=== PATIENT | male | born 1960 | race Caucasian/White ===

== ENCOUNTER 2016-10-02 14:09 | Emergency (ER) | payer SELFPAY ==
--- NOTE | 2016-10-02 14:30 | ED NURSING NOTES ---
Clinical Report - Nurses [facility] [address] [place] [address] 10/02/2016 14:10 Patient: JASVIR WOLFE TRIAGE Triage time 14:20. Acuity: LEVEL 4. Chief Complaint: RIGHT UPPER and LOWER TOOTHACHE. Alert. --14:29 Darcy Crisostomo R.N. 14:21 10/02/16. BP: 157/101. HR: 86. RR: 20. O2 saturation: 99% on room air. Temp: 98.5 F. Pain level now: 01/07. --14:29 Darcy Crisostomo R.N. 14:21 10/02/16. BP: 157/101. HR: 86. RR: 20. O2 saturation: 99% on room air. Temp: 98.5 F. Pain level now: 01/07. --14:29 Darcy Crisostomo R.N. Weight: 74.8 kg stated. Height/Length: 67 inches Per Patient. BMI: 25.9. --14:28 Darcy Crisostomo R.N. Medications None. --14:24 Darcy Crisostomo R.N. Medication/allergy information source: the patient. --14:29 Darcy Crisostomo R.N. Allergies No Known Drug Allergy. --14:24 Darcy Crisostomo R.N. History Arrived by private vehicle. Historian: patient. Accompanied by family. Primary physician (Lul). Onset. (3 days ago). ( broken teeth). He has had facial pain. He has had swelling of the jaw. 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 PAST MEDICAL HX: Immunizations: status is unknown. SOCIAL HX: Heavy tobacco smoker (cigarette)- less than 1 pack per day. Alcohol use; consumes beer daily. History of drug use: marijuana. Recently used drugs yesterday. FALL RISK ASSESSMENT: Fall risk assessment completed. No fall risk identified. NUTRITIONAL RISK ASSESSMENT: The nutritional risk assessment revealed no deficiencies. FUNCTIONAL ASSESSMENT: Functional assessment: no impairments noted. LEARNING NEEDS ASSESSMENT: The learning needs assessment revealed no barriers. SKIN INTEGRITY ASSESSMENT: Skin integrity risk assessment completed. No skin integrity risk identified. --14:29 Darcy Crisostomo R.N. PROBLEMS: Cellulitis. Dental Pain. Seizure Disorder. Degenerative Joint Disease. --14:25 Darcy Crisostomo R.N. ADDITIONAL SURGERIES: Knee Surgery. Neck Surgery []. Reconction of scalp and lt butt cheek.. --14:25 Darcy Crisostomo R.N. Interventions ID band on patient. To room. --14:29 Darcy Crisostomo R.N. PHYSICAL ASSESSMENT Ambulatory to room. GENERAL / NEURO / PSYCH: Alert. Oriented X 4. Appears in pain and anxious. HEENT: Pharynx within normal limits. Voice within normal limits. Dental tenderness. Dental decay. Mucous membranes are pink. SKIN: Skin is warm and dry. Normal skin turgor. --14:30 Darcy Crisostomo R.N. NURSING PROGRESS NOTES Head of bed elevated. Two patient identifiers checked. Call light placed in reach. Side rails up x 2. Bed placed in lowest position. Brakes of bed on. Patient ready for evaluation. --14:31 Darcy Crisostomo R.N. 14:33 10/02/2016 Amoxicillin PO 500 mg given. Allergies verified and confirmed 5 rights. --14:48 Darcy Crisostomo R.N. 14:33 10/02/2016 Hydrocodone-APAP (Hydrocodone-Acetaminophen) PO 5/325 mg Tablets 1 tab given. Allergies verified, confirmed 5 rights and sedative warning given to the patient and patient's family. --14:48 Darcy Crisostomo R.N. DISPOSITION / DISCHARGE 14:45. Condition at departure: improved. No learning barriers present. Discharge instructions provided and reviewed with the patient and spouse. Reviewed medication(s) side effects, precautions, dosing and course information. Prescription(s) given to the patient. Patient verbalized understanding. Written instructions provided in Palauan. The patient was discharged home and accompanied by spouse. He left the Emergency Department ambulatory and via private vehicle. Spouse driving. Medication list reviewed and validated. --14:49 Darcy Crisostomo R.N. 14:21 10/02/16. BP: 157/101. HR: 86. RR: 20. O2 saturation: 99% on room air. Temp: 98.5 F. Pain level now: 5/10. --14:49 Darcy Crisostomo R.N. 14:40 10/02/16. BP: 145/88. HR: 74. RR: 18. O2 saturation: 99% on room air. --14:50 Darcy Crisostomo R.N. Locked/Released at 10/02/2016 14:51 by Darcy Crisostomo R.N.
--- NOTE | 2016-10-02 14:30 | ED CLINICAL REPORT ---
Clinical Report - Physicians/Mid Levels [facility] [address] [place] [place] [address] 10/02/2016 14:10 Patient: JASVIR WOLFE Time Seen: 14:32 Oct 02 2016. Arrived- By private vehicle. Historian- patient. HISTORY OF PRESENT ILLNESS Chief Complaint: DENTAL PAIN. This started just prior to arrival and is still present. Pain described as mild. No mouth sores or nasal discharge or congestion. He has had toothache and facial pain. (56-year-old male, with worsening dental pain over the last 3 days. Reports significant changes to his teeth are in the last few years, with rotting to such, has not seen a dentist recently. Denies fevers or chills. Reports facial swelling. Denies any difficulty swallowing.). REVIEW OF SYSTEMS No fever, eye discomfort, cough, difficulty breathing or nausea. No diarrhea, abdominal pain or headache. All systems otherwise negative, except as recorded above. PAST HISTORY Problems: Cellulitis. Tetanus Status. Dental Pain. Seizure Disorder. Degenerative Joint Disease. Additional Surgeries: Knee Surgery. Neck Surgery []. Reconction of scalp and lt butt cheek.. Medications: None. Allergies: No Known Drug Allergy. SOCIAL HISTORY Smoker- current status unknown. Alcohol use. History of drug use. ADDITIONAL NOTES The nursing notes have been reviewed. PHYSICAL EXAM Vital Signs: 10/02/2016 14:21 BP: 157/101. HR: 86. RR: 20. O2 saturation: 99%. Temp: 98.5 F. Pain level now: 5/10. Appearance: Alert. No acute distress. Head: Normal external inspection. ENT: Dental decay and tenderness. Nose normal. Lips normal. No trismus present. No mouth ulcerations or tonsillar exudate. (gum erythema). (upper gumline right side with decay to gumline, and erythema.). Neck: Trachea midline. No lymphadenopathy. CVS: Normal heart rate and rhythm. Heart sounds normal. Respiratory: No respiratory distress. Breath sounds normal. Skin: Normal skin color. PROGRESS AND PROCEDURES Course of Care: pt stable, no distress. uvula midline. Facial swelling. Pt is with no otalgia. NO signs of otitis. Patient is with no neck pain. Afebrile. No other systemic sx. No signs of ludwigs angina. Patient is stable. Physical exam findings are improved. Patient/family counseled. Disposition: Discharged. CLINICAL IMPRESSION Periapical dental abscess. INSTRUCTIONS Drink plenty of fluids. (salt water rinses). Prescription Medications: Hydrocodone/APAP 5mg / 325mg: take 1 orally every 6 hours as needed for pain. Dispense ten (10). No refill. Amoxicillin 500 mg tablets: take 1 orally every 8 hours for 10 days. No refills. Follow-up: Follow up with your doctor in three days. (Electronically signed by Blanca Moore P.A.-C 10/02/2016 14:35)
--- NOTE | 2016-10-02 14:30 | ED NURSING NOTES ---
Clinical Report - Nurses [facility] [address] [place] [address] 10/02/2016 14:10 Patient: JASVIR WOLFE TRIAGE Triage time 14:20. Acuity: LEVEL 4. Chief Complaint: RIGHT UPPER and LOWER TOOTHACHE. Alert. --14:29 Darcy Crisostomo R.N. 14:21 10/02/16. BP: 157/101. HR: 86. RR: 20. O2 saturation: 99% on room air. Temp: 98.5 F. Pain level now: 01/07. --14:29 Darcy Crisostomo R.N. 14:21 10/02/16. BP: 157/101. HR: 86. RR: 20. O2 saturation: 99% on room air. Temp: 98.5 F. Pain level now: 01/07. --14:29 Darcy Crisostomo R.N. Weight: 74.8 kg stated. Height/Length: 67 inches Per Patient. BMI: 25.9. --14:28 Darcy Crisostomo R.N. Medications None. --14:24 Darcy Crisostomo R.N. Medication/allergy information source: the patient. --14:29 Darcy Crisostomo R.N. Allergies No Known Drug Allergy. --14:24 Darcy Crisostomo R.N. History Arrived by private vehicle. Historian: patient. Accompanied by family. Primary physician (Lul). Onset. (3 days ago). ( broken teeth). He has had facial pain. He has had swelling of the jaw. 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 PAST MEDICAL HX: Immunizations: status is unknown. SOCIAL HX: Heavy tobacco smoker (cigarette)- less than 1 pack per day. Alcohol use; consumes beer daily. History of drug use: marijuana. Recently used drugs yesterday. FALL RISK ASSESSMENT: Fall risk assessment completed. No fall risk identified. NUTRITIONAL RISK ASSESSMENT: The nutritional risk assessment revealed no deficiencies. FUNCTIONAL ASSESSMENT: Functional assessment: no impairments noted. LEARNING NEEDS ASSESSMENT: The learning needs assessment revealed no barriers. SKIN INTEGRITY ASSESSMENT: Skin integrity risk assessment completed. No skin integrity risk identified. --14:29 Darcy Crisostomo R.N. PROBLEMS: Cellulitis. Dental Pain. Seizure Disorder. Degenerative Joint Disease. --14:25 Darcy Crisostomo R.N. ADDITIONAL SURGERIES: Knee Surgery. Neck Surgery []. Reconction of scalp and lt butt cheek.. --14:25 Darcy Crisostomo R.N. Interventions ID band on patient. To room. --14:29 Darcy Crisostomo R.N. PHYSICAL ASSESSMENT Ambulatory to room. GENERAL / NEURO / PSYCH: Alert. Oriented X 4. Appears in pain and anxious. HEENT: Pharynx within normal limits. Voice within normal limits. Dental tenderness. Dental decay. Mucous membranes are pink. SKIN: Skin is warm and dry. Normal skin turgor. --14:30 Darcy Crisostomo R.N. NURSING PROGRESS NOTES Head of bed elevated. Two patient identifiers checked. Call light placed in reach. Side rails up x 2. Bed placed in lowest position. Brakes of bed on. Patient ready for evaluation. --14:31 Darcy Crisostomo R.N. 14:33 10/02/2016 Amoxicillin PO 500 mg given. Allergies verified and confirmed 5 rights. --14:48 Darcy Crisostomo R.N. 14:33 10/02/2016 Hydrocodone-APAP (Hydrocodone-Acetaminophen) PO 5/325 mg Tablets 1 tab given. Allergies verified, confirmed 5 rights and sedative warning given to the patient and patient's family. --14:48 Darcy Crisostomo R.N. DISPOSITION / DISCHARGE 14:45. Condition at departure: improved. No learning barriers present. Discharge instructions provided and reviewed with the patient and spouse. Reviewed medication(s) side effects, precautions, dosing and course information. Prescription(s) given to the patient. Patient verbalized understanding. Written instructions provided in Czech. The patient was discharged home and accompanied by spouse. He left the Emergency Department ambulatory and via private vehicle. Spouse driving. Medication list reviewed and validated. --14:49 Darcy Crisostomo R.N. 14:21 10/02/16. BP: 157/101. HR: 86. RR: 20. O2 saturation: 99% on room air. Temp: 98.5 F. Pain level now: 5/10. --14:49 Darcy Crisostomo R.N. 14:40 10/02/16. BP: 145/88. HR: 74. RR: 18. O2 saturation: 99% on room air. --14:50 Darcy Crisostomo R.N. Locked/Released at 10/02/2016 14:51 by Darcy Crisostomo R.N.
--- NOTE | 2016-10-02 14:30 | ED ORDER SUMMARY ---
..... Patient: JASVIR WOLFE OrderSheet [facility] VisitID: [id number] [address] [place] [address] 56y, M Registration Date/Time: 10/02/2016 ORDER SHEET Weight: 74.8 kg (stated) Allergies: No Known Drug Allergy GENERAL ORDERS: MEDICATION ORDERS: Amoxicillin PO 500 mg (NOW) (14:29 10/02/2016 Jill Lopez.ARosaline-C) (Ack 14:31 SRoberts R.N.) (14:48 SRoberts R.N.) Hydrocodone-APAP PO 5/325 mg (NOW, HIGH ALERT MEDICATION) (14:29 10/02/2016 Jill AndrewARosaline-Chioma) (Ack 14:31 SRoberts R.N.) (14:48 SRoberts R.N.) IV FLUIDS: ORDER SHEET NOTES: [Electronically signed by Blanca Moore P.A.-C (14:35 10/02/2016)] [Electronically signed by Darcy Crisostomo R.N. (14:51 10/02/2016)] [Electronically locked/signed by Darcy Crisostomo R.N. (14:51 10/02/2016)]
--- NOTE | 2016-10-02 14:30 | ED ORDER SUMMARY ---
..... Patient: JASVIR WOLFE OrderSheet [facility] VisitID: [id number] [address] [place] [address] 56y, M Registration Date/Time: 10/02/2016 ORDER SHEET Weight: 74.8 kg (stated) Allergies: No Known Drug Allergy GENERAL ORDERS: MEDICATION ORDERS: Amoxicillin PO 500 mg (NOW) (14:29 10/02/2016 Jill Lopez.ARosaline-C) (Ack 14:31 SRoberts R.N.) (14:48 SRoberts R.N.) Hydrocodone-APAP PO 5/325 mg (NOW, HIGH ALERT MEDICATION) (14:29 10/02/2016 Jill AndrewARosaline-Chioma) (Ack 14:31 SRoberts R.N.) (14:48 SRoberts R.N.) IV FLUIDS: ORDER SHEET NOTES: [Electronically signed by Blanca Moore P.A.-C (14:35 10/02/2016)] [Electronically signed by Darcy Crisostomo R.N. (14:51 10/02/2016)] [Electronically locked/signed by Darcy Crisostomo R.N. (14:51 10/02/2016)]
--- NOTE | 2016-10-02 14:30 | ED CLINICAL REPORT ---
Clinical Report - Physicians/Mid Levels [facility] [address] [place] [address] 10/02/2016 14:10 Patient: JASVIR WOLFE Time Seen: 14:32 Oct 02 2016. Arrived- By private vehicle. Historian- patient. HISTORY OF PRESENT ILLNESS Chief Complaint: DENTAL PAIN. This started just prior to arrival and is still present. Pain described as mild. No mouth sores or nasal discharge or congestion. He has had toothache and facial pain. (56-year-old male, with worsening dental pain over the last 3 days. Reports significant changes to his teeth are in the last few years, with rotting to such, has not seen a dentist recently. Denies fevers or chills. Reports facial swelling. Denies any difficulty swallowing.). REVIEW OF SYSTEMS No fever, eye discomfort, cough, difficulty breathing or nausea. No diarrhea, abdominal pain or headache. All systems otherwise negative, except as recorded above. PAST HISTORY Problems: Cellulitis. Tetanus Status. Dental Pain. Seizure Disorder. Degenerative Joint Disease. Additional Surgeries: Knee Surgery. Neck Surgery []. Reconction of scalp and lt butt cheek.. Medications: None. Allergies: No Known Drug Allergy. SOCIAL HISTORY Smoker- current status unknown. Alcohol use. History of drug use. ADDITIONAL NOTES The nursing notes have been reviewed. PHYSICAL EXAM Vital Signs: 10/02/2016 14:21 BP: 157/101. HR: 86. RR: 20. O2 saturation: 99%. Temp: 98.5 F. Pain level now: 5/10. Appearance: Alert. No acute distress. Head: Normal external inspection. ENT: Dental decay and tenderness. Nose normal. Lips normal. No trismus present. No mouth ulcerations or tonsillar exudate. (gum erythema). (upper gumline right side with decay to gumline, and erythema.). Neck: Trachea midline. No lymphadenopathy. CVS: Normal heart rate and rhythm. Heart sounds normal. Respiratory: No respiratory distress. Breath sounds normal. Skin: Normal skin color. PROGRESS AND PROCEDURES Course of Care: pt stable, no distress. uvula midline. Facial swelling. Pt is with no otalgia. NO signs of otitis. Patient is with no neck pain. Afebrile. No other systemic sx. No signs of ludwigs angina. Patient is stable. Physical exam findings are improved. Patient/family counseled. Disposition: Discharged. CLINICAL IMPRESSION Periapical dental abscess. INSTRUCTIONS Drink plenty of fluids. (salt water rinses). Prescription Medications: Hydrocodone/APAP 5mg / 325mg: take 1 orally every 6 hours as needed for pain. Dispense ten (10). No refill. Amoxicillin 500 mg tablets: take 1 orally every 8 hours for 10 days. No refills. Follow-up: Follow up with your doctor in three days. (Electronically signed by Blanca Moore P.A.-C 10/02/2016 14:35)
--- NOTE | 2016-10-02 14:51 | ED MAR SUMMARY ---
..... Medication Administration Record [facility] [address] [place] [address] Patient: JASVIR WOLFE Visit ID: [id number] 56y, M Weight: 74.8 kg Height/Length: 67 in BMI: 25.9 ALLERGIES: No Known Drug Allergy Given :10/02/2016 Darcy Crisostomo R.N. Medication Administered: AMOXICILLIN [PO], Dose: 500 mg PO. Medication Ordered: Amoxicillin PO 500 mg (NOW). Given :10/02/2016 Darcy Crisostomo R.N. Medication Administered: HYDROCODONE-APAP [PO] (HYDROCODONE-ACETAMINOPHEN), Dose: 1 tab 5/325 mg Tablets PO. Medication Ordered: Hydrocodone-APAP PO 5/325 mg (NOW, HIGH ALERT MEDICATION).
--- NOTE | 2016-10-02 14:51 | ED DISCHARGE INSTRUCTIONS ---
Patient: JASVIR WOLFE General Instructions [facility] VisitID: [id number] [address] [place] [address] 56y, M Registration Date/Time: 10/02/2016 Periapical dental abscess. INSTRUCTIONS Drink plenty of fluids. (salt water rinses). Prescription Medications: Hydrocodone/APAP 5mg / 325mg: take 1 orally every 6 hours as needed for pain. Dispense ten (10). No refill. Amoxicillin 500 mg tablets: take 1 orally every 8 hours for 10 days. No refills. Follow-up: Follow up with your doctor in three days. ADDITIONAL INFORMATION Dental Abscess With Facial Cellulitis A dental abscess is an infection at the base of a tooth. When this is untreated, it spreads to the gum near the tooth causing swelling and pain. More severe infections cause facial swelling as the bacteria spread to the nearby tissues of the face. This is a very serious condition. Once the swelling begins, it can spread rapidly. A dental abscess usually starts with a crack or cavity in the tooth. The pain is often made worse by drinking hot or cold fluids, or biting on hard foods and may spread from the tooth to the ear or jaw on the same side. Home Care: Avoid hot and cold foods and liquids since your tooth may be sensitive to temperature changes. If your tooth is chipped or cracked, or if there is a large open cavity, apply oil of cloves or oil of peppermint (available nfit-uhb-svojtge in drug stores) directly to the tooth to reduce pain. Some pharmacies carry an hayr-lon-xikylpp toothache kit. This contains a paste, which can be applied over the exposed tooth to decrease sensitivity. A cold pack on your jaw over the sore area may help reduce pain. You may use acetaminophen (Tylenol) or ibuprofen (Motrin, Advil) to control pain, unless another medicine was prescribed. [NOTE: If you have chronic liver or kidney disease or ever had a stomach ulcer or GI bleeding, talk with your doctor before using these medicines.] An antibiotic will be prescribed. Take it exactly as directed. Do not miss any doses. Follow-Up as advised with a dentist or oral surgeon. Severe cases of cellulitis must be checked again within 24 hours. Once an infection occurs in a tooth, it will continue to be a problem until the infection is drained (surgery or root canal) or the tooth is pulled. Get Prompt Medical Attention if any of the following occur: Swelling spreads to the upper half of your face or your eyelids begin to swell shut Pain worsens or spreads to the neck Fever of 100.4F (38C) or higher, or as directed by your healthcare provider Unusual drowsiness, headache or a stiff neck; weakness or fainting Difficulty swallowing or breathing Hydrocodone Bitartrate, Acetaminophen Oral tablet What is this medicine? ACETAMINOPHEN; HYDROCODONE (a set a JESUS dom fen; anali droe KOE done) is a pain reliever. It is used to treat mild to moderate pain. How should I use this medicine? Take this medicine by mouth. Swallow it with a full glass of water. Follow the directions on the prescription label. If the medicine upsets your stomach, take the medicine with food or milk. Do not take more than you are told to take. Talk to your glue spreader regarding the use of this medicine in children. This medicine is not approved for use in children. What side effects may I notice from receiving this medicine? Side effects that you should report to your doctor or health managed care nurse as soon as possible: allergic reactions like skin rash, itching or hives, swelling of the face, lips, or tongue breathing problems confusion feeling faint or lightheaded, falls stomach pain yellowing of the eyes or skin Side effects that usually do not require medical attention (report to your doctor or health managed care nurse if they continue or are bothersome): nausea, vomiting stomach upset What may interact with this medicine? alcohol antihistamines isoniazid medicines for depression, anxiety, or psychotic disturbances medicines for sleep muscle relaxants naltrexone narcotic medicines (opiates) for pain phenobarbital ritonavir tramadol What if I miss a dose? If you miss a dose, take it as soon as you can. If it is almost time for your next dose, take only that dose. Do not take double or extra doses. Where should I keep my medicine? Keep out of the reach of children. This medicine can be abused. Keep your medicine in a safe place to protect it from theft. Do not share this medicine with anyone. Selling or giving away this medicine is dangerous and against the law. Store at room temperature between 15 and 30 degrees C (59 and 86 degrees F). Protect from light. Keep container tightly closed. Throw away any unused medicine after the expiration date. Discard unused medicine and used packaging carefully. Pets and children can be harmed if they find used or lost packages. What should I tell my health care provider before I take this medicine? They need to know if you have any of these conditions: brain tumor Crohn's disease, inflammatory bowel disease, or ulcerative colitis drink more than 3 alcohol-containing drinks per day drug abuse or addiction head injury heart or circulation problems kidney disease or problems going to the bathroom liver disease lung disease, asthma, or breathing problems an unusual or allergic reaction to acetaminophen, hydrocodone, other opioid analgesics, other medicines, foods, dyes, or preservatives or trying to get breast-feeding What should I watch for while using this medicine? Tell your doctor or health managed care nurse if your pain does not go away, if it gets worse, or if you have new or a different type of pain. You may develop tolerance to the medicine. Tolerance means that you will need a higher dose of the medicine for pain relief. Tolerance is normal and is expected if you take the medicine for a long time. Do not suddenly stop taking your medicine because you may develop a severe reaction. Your body becomes used to the medicine. This does NOT mean you are addicted. Addiction is a behavior related to getting and using a drug for a non-medical reason. If you have pain, you have a medical reason to take pain medicine. Your doctor will tell you how much medicine to take. If your doctor wants you to stop the medicine, the dose will be slowly lowered over time to avoid any side effects. You may get drowsy or dizzy when you first start taking the medicine or change doses. Do not drive, use machinery, or do anything that may be dangerous until you know how the medicine affects you. Stand or sit up slowly. There are different types of narcotic medicines (opiates) for pain. If you take more than one type at the same time, you may have more side effects. Give your health care provider a list of all medicines you use. Your doctor will tell you how much medicine to take. Do not take more medicine than directed. Call emergency for help if you have problems breathing. The medicine will cause constipation. Try to have a bowel movement at least every 2 to 3 days. If you do not have a bowel movement for 3 days, call your doctor or health managed care nurse. Too much acetaminophen can be very dangerous. Do not take Tylenol (acetaminophen) or medicines that contain acetaminophen with this medicine. Many non-prescription medicines contain acetaminophen. Always read the labels carefully. Amoxicillin Trihydrate Oral tablet What is this medicine? AMOXICILLIN (a mox i MARCY in) is a penicillin antibiotic. It is used to treat certain kinds of bacterial infections. It will not work for colds, flu, or other viral infections. How should I use this medicine? Take this medicine by mouth with a glass of water. Follow the directions on your prescription label. You may take this medicine with food or on an empty stomach. Take your medicine at regular intervals. Do not take your medicine more often than directed. Take all of your medicine as directed even if you think your are better. Do not skip doses or stop your medicine early. Talk to your glue spreader regarding the use of this medicine in children. While this drug may be prescribed for selected conditions, precautions do apply. What side effects may I notice from receiving this medicine? Side effects that you should report to your doctor or health managed care nurse as soon as possible: allergic reactions like skin rash, itching or hives, swelling of the face, lips, or tongue breathing problems dark urine redness, blistering, peeling or loosening of the skin, including inside the mouth seizures severe or watery diarrhea trouble passing urine or change in the amount of urine unusual bleeding or bruising unusually weak or tired yellowing of the eyes or skin Side effects that usually do not require medical attention (report to your doctor or health managed care nurse if they continue or are bothersome): dizziness headache stomach upset trouble sleeping What may interact with this medicine? amiloride control pills chloramphenicol macrolides probenecid sulfonamides tetracyclines What if I miss a dose? If you miss a dose, take it as soon as you can. If it is almost time for your next dose, take only that dose. Do not take double or extra doses. Where should I keep my medicine? Keep out of the reach of children. Store between 68 and 77 degrees F (20 and 25 degrees C). Keep bottle closed tightly. Throw away any unused medicine after the expiration date. What should I tell my health care provider before I take this medicine? They need to know if you have any of these conditions: asthma kidney disease an unusual or allergic reaction to amoxicillin, other penicillins, cephalosporin antibiotics, other medicines, foods, dyes, or preservatives or trying to get breast-feeding What should I watch for while using this medicine? Tell your doctor or health managed care nurse if your symptoms do not improve in 2 or 3 days. Take all of the doses of your medicine as directed. Do not skip doses or stop your medicine early. If you are diabetic, you may get a false positive result for sugar in your urine with certain brands of urine tests. Check with your doctor. Do not treat diarrhea with qnll-jhq-axojnuy products. Contact your doctor if you have diarrhea that lasts more than 2 days or if the diarrhea is severe and watery. You have been given the following additional information: Dental Abscess W/ Facial Cellulitis Hydrocodone Bitartrate, Acetaminophen Oral tablet Amoxicillin Trihydrate Oral tablet (Electronically signed by Blanca Moore P.A.-C 10/02/2016 14:35)
--- NOTE | 2016-10-02 14:51 | ED MED RECONCILIATION SUMMARY ---
Patient: JASVIR WOLFE Medication Reconciliation Report [facility] VisitID: [id number] [address] [place] [address] 56y, M Registration Date/Time: 10/02/2016 Weight: 74.8 kg Height/Length: 67 in. BMI: 25.9 ALLERGIES: No Known Drug Allergy The patient's Home Medications are listed below: NONE. The source(s) of the original Home Medication information: patient The following Medications were given to the patient in the Emergency Department: Amoxicillin [PO] PO 500 mg, administered: 10/02/2016 2:33:00 PM Hydrocodone-APAP [PO] PO 1 tab, administered: 10/02/2016 2:33:00 PM The following Medications were prescribed to the patient: Hydrocodone/APAP 5mg / 325mg: take 1 orally every 6 hours as needed for pain. Dispense ten (10). No refill. -- Blanca Moore, P.ARosaline-Chioma Amoxicillin 500 mg tablets: take 1 orally every 8 hours for 10 days. No refills. -- Blanca Moore, P.A.-C
--- NOTE | 2016-10-02 14:51 | ED DISCHARGE INSTRUCTIONS ---
Patient: JASVIR WOLFE General Instructions [facility] VisitID: [id number] [address] [place] [address] 56y, M Registration Date/Time: 10/02/2016 Periapical dental abscess. INSTRUCTIONS Drink plenty of fluids. (salt water rinses). Prescription Medications: Hydrocodone/APAP 5mg / 325mg: take 1 orally every 6 hours as needed for pain. Dispense ten (10). No refill. Amoxicillin 500 mg tablets: take 1 orally every 8 hours for 10 days. No refills. Follow-up: Follow up with your doctor in three days. ADDITIONAL INFORMATION Dental Abscess With Facial Cellulitis A dental abscess is an infection at the base of a tooth. When this is untreated, it spreads to the gum near the tooth causing swelling and pain. More severe infections cause facial swelling as the bacteria spread to the nearby tissues of the face. This is a very serious condition. Once the swelling begins, it can spread rapidly. A dental abscess usually starts with a crack or cavity in the tooth. The pain is often made worse by drinking hot or cold fluids, or biting on hard foods and may spread from the tooth to the ear or jaw on the same side. Home Care: Avoid hot and cold foods and liquids since your tooth may be sensitive to temperature changes. If your tooth is chipped or cracked, or if there is a large open cavity, apply oil of cloves or oil of peppermint (available gnpp-jed-ezgfdal in drug stores) directly to the tooth to reduce pain. Some pharmacies carry an tmys-kuk-ofyoklg toothache kit. This contains a paste, which can be applied over the exposed tooth to decrease sensitivity. A cold pack on your jaw over the sore area may help reduce pain. You may use acetaminophen (Tylenol) or ibuprofen (Motrin, Advil) to control pain, unless another medicine was prescribed. [NOTE: If you have chronic liver or kidney disease or ever had a stomach ulcer or GI bleeding, talk with your doctor before using these medicines.] An antibiotic will be prescribed. Take it exactly as directed. Do not miss any doses. Follow-Up as advised with a dentist or oral surgeon. Severe cases of cellulitis must be checked again within 24 hours. Once an infection occurs in a tooth, it will continue to be a problem until the infection is drained (surgery or root canal) or the tooth is pulled. Get Prompt Medical Attention if any of the following occur: Swelling spreads to the upper half of your face or your eyelids begin to swell shut Pain worsens or spreads to the neck Fever of 100.4F (38C) or higher, or as directed by your healthcare provider Unusual drowsiness, headache or a stiff neck; weakness or fainting Difficulty swallowing or breathing Hydrocodone Bitartrate, Acetaminophen Oral tablet What is this medicine? ACETAMINOPHEN; HYDROCODONE (a set a JESUS dom fen; anali droe KOE done) is a pain reliever. It is used to treat mild to moderate pain. How should I use this medicine? Take this medicine by mouth. Swallow it with a full glass of water. Follow the directions on the prescription label. If the medicine upsets your stomach, take the medicine with food or milk. Do not take more than you are told to take. Talk to your financial dealers regarding the use of this medicine in children. This medicine is not approved for use in children. What side effects may I notice from receiving this medicine? Side effects that you should report to your doctor or health daycare provider as soon as possible: allergic reactions like skin rash, itching or hives, swelling of the face, lips, or tongue breathing problems confusion feeling faint or lightheaded, falls stomach pain yellowing of the eyes or skin Side effects that usually do not require medical attention (report to your doctor or health daycare provider if they continue or are bothersome): nausea, vomiting stomach upset What may interact with this medicine? alcohol antihistamines isoniazid medicines for depression, anxiety, or psychotic disturbances medicines for sleep muscle relaxants naltrexone narcotic medicines (opiates) for pain phenobarbital ritonavir tramadol What if I miss a dose? If you miss a dose, take it as soon as you can. If it is almost time for your next dose, take only that dose. Do not take double or extra doses. Where should I keep my medicine? Keep out of the reach of children. This medicine can be abused. Keep your medicine in a safe place to protect it from theft. Do not share this medicine with anyone. Selling or giving away this medicine is dangerous and against the law. Store at room temperature between 15 and 30 degrees C (59 and 86 degrees F). Protect from light. Keep container tightly closed. Throw away any unused medicine after the expiration date. Discard unused medicine and used packaging carefully. Pets and children can be harmed if they find used or lost packages. What should I tell my health care provider before I take this medicine? They need to know if you have any of these conditions: brain tumor Crohn's disease, inflammatory bowel disease, or ulcerative colitis drink more than 3 alcohol-containing drinks per day drug abuse or addiction head injury heart or circulation problems kidney disease or problems going to the bathroom liver disease lung disease, asthma, or breathing problems an unusual or allergic reaction to acetaminophen, hydrocodone, other opioid analgesics, other medicines, foods, dyes, or preservatives or trying to get breast-feeding What should I watch for while using this medicine? Tell your doctor or health daycare provider if your pain does not go away, if it gets worse, or if you have new or a different type of pain. You may develop tolerance to the medicine. Tolerance means that you will need a higher dose of the medicine for pain relief. Tolerance is normal and is expected if you take the medicine for a long time. Do not suddenly stop taking your medicine because you may develop a severe reaction. Your body becomes used to the medicine. This does NOT mean you are addicted. Addiction is a behavior related to getting and using a drug for a non-medical reason. If you have pain, you have a medical reason to take pain medicine. Your doctor will tell you how much medicine to take. If your doctor wants you to stop the medicine, the dose will be slowly lowered over time to avoid any side effects. You may get drowsy or dizzy when you first start taking the medicine or change doses. Do not drive, use machinery, or do anything that may be dangerous until you know how the medicine affects you. Stand or sit up slowly. There are different types of narcotic medicines (opiates) for pain. If you take more than one type at the same time, you may have more side effects. Give your health care provider a list of all medicines you use. Your doctor will tell you how much medicine to take. Do not take more medicine than directed. Call emergency for help if you have problems breathing. The medicine will cause constipation. Try to have a bowel movement at least every 2 to 3 days. If you do not have a bowel movement for 3 days, call your doctor or health daycare provider. Too much acetaminophen can be very dangerous. Do not take Tylenol (acetaminophen) or medicines that contain acetaminophen with this medicine. Many non-prescription medicines contain acetaminophen. Always read the labels carefully. Amoxicillin Trihydrate Oral tablet What is this medicine? AMOXICILLIN (a mox i MARCY in) is a penicillin antibiotic. It is used to treat certain kinds of bacterial infections. It will not work for colds, flu, or other viral infections. How should I use this medicine? Take this medicine by mouth with a glass of water. Follow the directions on your prescription label. You may take this medicine with food or on an empty stomach. Take your medicine at regular intervals. Do not take your medicine more often than directed. Take all of your medicine as directed even if you think your are better. Do not skip doses or stop your medicine early. Talk to your financial dealers regarding the use of this medicine in children. While this drug may be prescribed for selected conditions, precautions do apply. What side effects may I notice from receiving this medicine? Side effects that you should report to your doctor or health daycare provider as soon as possible: allergic reactions like skin rash, itching or hives, swelling of the face, lips, or tongue breathing problems dark urine redness, blistering, peeling or loosening of the skin, including inside the mouth seizures severe or watery diarrhea trouble passing urine or change in the amount of urine unusual bleeding or bruising unusually weak or tired yellowing of the eyes or skin Side effects that usually do not require medical attention (report to your doctor or health daycare provider if they continue or are bothersome): dizziness headache stomach upset trouble sleeping What may interact with this medicine? amiloride control pills chloramphenicol macrolides probenecid sulfonamides tetracyclines What if I miss a dose? If you miss a dose, take it as soon as you can. If it is almost time for your next dose, take only that dose. Do not take double or extra doses. Where should I keep my medicine? Keep out of the reach of children. Store between 68 and 77 degrees F (20 and 25 degrees C). Keep bottle closed tightly. Throw away any unused medicine after the expiration date. What should I tell my health care provider before I take this medicine? They need to know if you have any of these conditions: asthma kidney disease an unusual or allergic reaction to amoxicillin, other penicillins, cephalosporin antibiotics, other medicines, foods, dyes, or preservatives or trying to get breast-feeding What should I watch for while using this medicine? Tell your doctor or health daycare provider if your symptoms do not improve in 2 or 3 days. Take all of the doses of your medicine as directed. Do not skip doses or stop your medicine early. If you are diabetic, you may get a false positive result for sugar in your urine with certain brands of urine tests. Check with your doctor. Do not treat diarrhea with bzvy-zko-tzsaeyp products. Contact your doctor if you have diarrhea that lasts more than 2 days or if the diarrhea is severe and watery. You have been given the following additional information: Dental Abscess W/ Facial Cellulitis Hydrocodone Bitartrate, Acetaminophen Oral tablet Amoxicillin Trihydrate Oral tablet (Electronically signed by Blanca Moore P.A.-C 10/02/2016 14:35)
--- NOTE | 2016-10-02 14:51 | ED MED RECONCILIATION SUMMARY ---
Patient: JASVIR WOLFE Medication Reconciliation Report [facility] VisitID: [id number] [address] [place] [address] 56y, M Registration Date/Time: 10/02/2016 Weight: 74.8 kg Height/Length: 67 in. BMI: 25.9 ALLERGIES: No Known Drug Allergy The patient's Home Medications are listed below: NONE. The source(s) of the original Home Medication information: patient The following Medications were given to the patient in the Emergency Department: Amoxicillin [PO] PO 500 mg, administered: 10/02/2016 2:33:00 PM Hydrocodone-APAP [PO] PO 1 tab, administered: 10/02/2016 2:33:00 PM The following Medications were prescribed to the patient: Hydrocodone/APAP 5mg / 325mg: take 1 orally every 6 hours as needed for pain. Dispense ten (10). No refill. -- Blanca Moore, P.ARosaline-Chioma Amoxicillin 500 mg tablets: take 1 orally every 8 hours for 10 days. No refills. -- Blanca Moore, P.A.-C
--- NOTE | 2016-10-02 14:51 | ED MAR SUMMARY ---
..... Medication Administration Record [facility] [address] [place] [address] Patient: JASVIR WOLFE Visit ID: [id number] 56y, M Weight: 74.8 kg Height/Length: 67 in BMI: 25.9 ALLERGIES: No Known Drug Allergy Given :10/02/2016 Darcy Crisostomo R.N. Medication Administered: AMOXICILLIN [PO], Dose: 500 mg PO. Medication Ordered: Amoxicillin PO 500 mg (NOW). Given :10/02/2016 Darcy Crisostomo R.N. Medication Administered: HYDROCODONE-APAP [PO] (HYDROCODONE-ACETAMINOPHEN), Dose: 1 tab 5/325 mg Tablets PO. Medication Ordered: Hydrocodone-APAP PO 5/325 mg (NOW, HIGH ALERT MEDICATION).
== END 2016-10-02 14:45 | disposition home or self-care (01) ==
LOC: ED SRH 14:09
DX: K04.7 Periapical abscess without sinus (principal); F17.210 Nicotine dependence, cigarettes, uncomplicated